=== PATIENT | female | born 2005 | race Two or more races ===

== ENCOUNTER 2023-02-18 19:54 | Emergency (ER) | payer MEDICAID ==
[~2023-02-18] VITALS: Ht 157.5 cm; Wt 65.4 kg
[~2023-02-18 19:54] MED LIST: PRED50TA PO
[2023-02-18] MEDS ORDERED: acetaminophen 325mg tablet PO STA (20:14)
[2023-02-18 21:56] VITALS: BP 102/52
[2023-02-18] MEDS ORDERED: dexamethasone sod phosphate 10mg/ml inj PO STA (23:30)
[2023-02-18] MEDS ORDERED: amox tr/potassium clavulanate 875/125mg TAB PO ONE (23:30)
[2023-02-18] MEDS ORDERED: AMOX-580 PO (23:32)
== END 2023-02-18 23:48 | disposition home or self-care (01) ==
LOC: ER 19:55
DX: J02.9 Acute pharyngitis, unspecified (principal); Z20.822 Contact with and (suspected) exposure to COVID-19
CPT/HCPCS: 87081; 87502; 87503; 87811; 87880; 99284; J1100